=== PATIENT | female | born 1990 | race Asian ===

== ENCOUNTER 2019-09-26 13:24 | Emergency (ER) | payer SELFPAY ==
[~2019-09-26] VITALS: Ht 165.1 cm; Wt 49.9 kg
[2019-09-26 13:32] VITALS: Ht 165.1 cm; Wt 49.9 kg
[2019-09-26 14:20] LABS: BASOPHIL % 0.2 % (0-2); PLATELET COUNT 212 x10^3mcL (130-400); RED CELL DISTRIBUTION WIDTH 13.8 % (11.5-14.5)
[2019-09-26 14:45] LABS: AMPHETAMINE QUAL UR POSITIVE (See below)
[2019-09-26 14:46] LABS: FREE T4 1.24 ng/dL (0.76-1.46); FREE THYROXINE INDEX 2.4 ug/dL (1.4-4.5); T4(THYROXINE) 6.3 ug/dL (4.7-13.3)
[2019-09-26 14:54] LABS: T3 TOTAL 0.81 ng/mL
[2019-09-26 14:55] LABS: CALCIUM 7.3 mg/dL (8.5-10.1); CARBON DIOXIDE 25.6 mmol/L (21-32); CHLORIDE SERUM 109 mmol/L (98-107); CREATININE SERUM 0.7 mg/dL (0.6-1.0); GFR1 > 60 mL/min; GLUCOSE SERUM 79 mg/dL (74-106); POTASSIUM SERUM 3.8 mmol/L (3.5-5.1); SODIUM SERUM 143 mmol/L (136-145)
[2019-09-26 14:59] LABS: ALBUMIN 2.8 g/dL (3.4-5.0); ALKALINE PHOSPHATASE 48 U/L (46-116); ALT/SGPT 29 U/L (14-59); AST/SGOT 11 U/L (15-37); BILIRUBIN TOTAL 0.3 mg/dL (0.20-1.00); TOTAL PROTEIN, SERUM 5.2 g/dL (6.4-8.2)
[2019-09-26 18:10] VITALS: BP 101/62
== END 2019-09-26 18:10 | disposition other institution (70) ==
LOC: ED 13:24
PROVIDERS: Emergency Medicine
DX: R41.82 Altered mental status, unspecified (principal)
CPT/HCPCS: 84439; G0480; J7030

== ENCOUNTER 2019-09-26 13:24 | Emergency (ER) | payer OTHER | END 2019-09-26 18:10 | disposition other institution (70) | LOC: ED 13:24 | DX: Z02.89 Encounter for other administrative examinations (principal) ==